=== PATIENT | female | born 1990 | race American Indian/Alaskan Native ===

== ENCOUNTER 2022-02-18 15:51 | Emergency (ER) | payer MEDICAID ==
[2022-02-18] MEDS ORDERED: Albuterol 8 GM Inhaler INH PRN (17:09)
[2022-02-18] MEDS ORDERED: Gabapentin 100 MG Cap PO ONE (17:12)
[2022-02-18] MEDS ORDERED: Famotidine 20 MG Tab PO ONE (17:12)
[2022-02-18] MEDS ORDERED: FLUoxetine 10 MG Cap PO ONE (17:12)
== END 2022-02-18 17:43 | disposition home or self-care (01) ==
LOC: JP.ED 15:51
DX: Z79.899 Other long term (current) drug therapy (principal); Z79.4 Long term (current) use of insulin
CPT/HCPCS: 99281; A9270